=== PATIENT | female | born 2000 | race Two or more races ===

== ENCOUNTER 2018-10-11 10:16 | Emergency (ER) | payer OTHER ==
[~2018-10-11] VITALS: Ht 162.6 cm; Wt 64.1 kg
[~2018-10-11 10:16] MED LIST: PENI250T57 PO
[2018-10-11] MEDS ORDERED: MELA5TAB20 PO (10:23)
[2018-10-11] MEDS ORDERED: HYDRO50TAB PO (10:23)
[2018-10-11] MEDS ORDERED: IPRATROPIUM 0.5MG/ALBUTEROL 2.5MG INH SOL UD 3ML (DUONEB)(J7620) NEB PRN (11:15)
[2018-10-11 12:04] LABS: INFLUENZA A AMPLIFICATION NEGATIVE (NEGATIVE); INFLUENZA B AMPLIFICATION NEGATIVE (NEGATIVE)
[2018-10-11] MEDS ORDERED: AUGM875T28 PO (12:23)
[2018-10-11] MEDS ORDERED: PRED20TA PO (12:23)
[2018-10-11] MEDS ORDERED: MUCI600T37 PO (12:23)
[2018-10-11] MEDS ORDERED: PROAAER10 INH (12:23)
--- NOTE | 2018-10-11 12:24 | REP ---
Chest two views HISTORY: Cough Comparison: None The lungs are clear. The heart is normal in size. The pulmonary vasculature is normal in appearance. The bony structure is intact. IMPRESSION: No acute disease. Electronically Signed by Oleksandr Teixeira MD 10/11/2018 12:15 P
[2018-10-11 12:27] VITALS: BP 139/79
[2018-10-11] MEDS ORDERED: GI COCKTAIL 50ML BTL(HYOSCYAMINE/MAALOX/LIDOCAINE VISCOUS)(1:3:1) PO ONE (12:30)
[2018-10-11] MEDS ORDERED: AUGMENTIN 875 MG TAB PO ONE (12:30)
== END 2018-10-11 12:37 | disposition home or self-care (01) ==
LOC: M ED 10:16
DX: J20.9 Acute bronchitis, unspecified (principal); J01.90 Acute sinusitis, unspecified; F17.200 Nicotine dependence, unspecified, uncomplicated; Z79.899 Other long term (current) drug therapy

== ENCOUNTER 2018-11-18 08:01 | Emergency (ER) | payer OTHER ==
[~2018-11-18] VITALS: Ht 162.6 cm; Wt 64.5 kg
[~2018-11-18 08:01] MED LIST changes: +AUGM875T28 PO; +HYDRO50TAB PO; +MELA5TAB20 PO; +MUCI600T37 PO; +PRED20TA PO; +PROAAER10 INH
[2018-11-18 08:45] LABS: BASO % 0.3 % (0.0-1.0); EOS # 0.4 10^3/uL (0.0-0.50); EOS % 3.7 % (0.0-3.0); HEMOGLOBIN 13.4 g/dl (12.0-15.5); LYMPH # 2.8 10^3/uL (1.5-6.5); LYMPH % 23.3 % (24.0-44.0); MEAN CORPUSCULAR HEMOGLOBIN 30.3 pg (27.0-33.0); MEAN CORPUSCULAR HGB CONC 33.5 g/dl (32.0-36.5); MEAN CORPUSCULAR VOLUME 90.5 fl (80.0-96.0); MONO # 0.9 10^3/uL (0.0-0.8); MONO % 7.9 % (0.0-5.0); NEUTROPHILS # 7.7 10^3/uL (1.8-7.7); NEUTROPHILS % 64.5 % (36.0-66.0); PLATELET COUNT, AUTOMATED 298 10^3/uL (150-450); RED BLOOD COUNT 4.42 10^6/uL (4.00-5.40); WHITE BLOOD COUNT 11.9 10^3/uL (4.0-10.0)
[2018-11-18 09:06] LABS: HCG, SERUM QUALITATIVE NEGATIVE (NEGATIVE)
[2018-11-18 09:08] LABS: ALBUMIN 3.6 GM/DL (3.2-5.2); ALT/SGPT 18 U/L (12-78); BILIRUBIN,DIRECT < 0.1 MG/DL (0.0-0.2); BILIRUBIN,TOTAL 0.2 MG/DL (0.2-1.0); BLOOD UREA NITROGEN 13 MG/DL (7-18); CALCIUM LEVEL 8.9 MG/DL (8.5-10.1); CARBON DIOXIDE LEVEL 26 MEQ/L (21-32); CHLORIDE LEVEL 106 MEQ/L (98-107); CREATININE FOR GFR 0.83 MG/DL (0.55-1.30); GLUCOSE, FASTING 91 MG/DL (70-100); LIPASE 139 U/L (73-393); POTASSIUM SERUM 4.4 MEQ/L (3.5-5.1); SODIUM LEVEL 139 MEQ/L (136-145); TOTAL PROTEIN 7.1 GM/DL (6.4-8.2)
[2018-11-18] MEDS ORDERED: GASTROGRAFIN SOLUTION 30ML (Q9963) As Ordered ONE (10:09)
[2018-11-18] MEDS: GASTROGRAFIN SOLUTION 30ML (Q9963) PO SCH ×2 (10:18→10:50)
--- NOTE | 2018-11-18 10:51 | REP ---
REASON: Nonspecific abdominal pain. FINDINGS: Supine and upright views of the abdomen show the intestinal gas pattern to be nonspecific. Gas and stool is seen throughout the colon within the rectosigmoid region. The organ silhouettes insofar as delineated appear unremarkable. No abdominal calcific densities are seen within the abdomen or pelvis. The accompanying single frontal view of the chest shows no free subdiaphragmatic air, cardiomegaly, infiltrates or effusions. IMPRESSION: Nonspecific intestinal gas pattern. Electronically Signed by Sam Tinsley DO 11/18/2018 01:52 P
[2018-11-18] MEDS ORDERED: ISOVUE-370 76% 100ML VIAL (Q9967) As Ordered ONE (11:52)
[2018-11-18] MEDS ORDERED: NAPR-837 PO (12:31)
[2018-11-18 12:39] VITALS: BP 124/75
--- NOTE | 2018-11-18 12:44 | REP ---
REASON: Right lower quadrant pain. COMPARISON: None. CONTRAST: 100 mL Isovue 370. The lung bases are clear. The liver, gallbladder, spleen, pancreas, adrenal glands, and kidneys are within normal limits. The abdominal aorta and para-aortic regions are within normal limits. The bowel loops and the mesenteries are within normal limits. There is no free fluid or free air. There is no mass or adenopathy. CT PELVIS: In the right adnexa, there is a 2.1 cm sized wall irregular nearly anechoic structure most consistent with a decompressing right ovarian cyst. There is a trace amount of free fluid in the pelvis. There is no free air. The bowel loops are unremarkable. Bone window technique throughout the examination shows the osseous structures to be within normal limits. IMPRESSION: 1. Decompressing right ovarian cyst suspected as described above. Electronically Signed by Sam Tinsley DO 11/18/2018 02:33 P
== END 2018-11-18 12:41 | disposition home or self-care (01) ==
LOC: M ED 08:01
DX: N83.299 Other ovarian cyst, unspecified side (principal); Z79.899 Other long term (current) drug therapy
CPT/HCPCS: 74021; 74177; 80048; 80076; 81001; 83690; 84703; 85025; 99284; Q9967

== ENCOUNTER 2019-03-15 02:13 | Emergency (ER) | payer OTHER ==
[~2019-03-15] VITALS: Ht 162.6 cm; Wt 66.8 kg
[~2019-03-15 02:13] MED LIST changes: +HYDR1TAB33 PO; -HYDRO50TAB PO; +NAPR-837 PO
[2019-03-15] MEDS ORDERED: TRAZ-186 PO (02:24)
[2019-03-15] MEDS ORDERED: birth control PO (02:24)
[2019-03-15] MEDS ORDERED: KETOROLAC 30 MG/ML VIAL (J1885) IV ONE (05:15)
[2019-03-15] MEDS ORDERED: diphenhydrAMINE INJ 50MG/ML VIAL (J1200) IV ONE (05:15)
[2019-03-15] MEDS ORDERED: NS 1,000 ML IV ONE (05:15)
[2019-03-15] MEDS ORDERED: METOCLOPRAMIDE INJ 10MG/2ML VIAL (J2765) IV ONE (05:15)
[2019-03-15 06:15] VITALS: BP 114/64
== END 2019-03-15 06:16 | disposition home or self-care (01) ==
LOC: M ED 02:13
DX: G43.909 Migraine, unspecified, not intractable, without status migrainosus (principal); E28.2 Polycystic ovarian syndrome; F43.10 Post-traumatic stress disorder, unspecified
CPT/HCPCS: 96361; 96374; 96375; 99284; J1200; J1885; J2765

== ENCOUNTER 2019-04-17 20:21 | Emergency (ER) | payer OTHER ==
[~2019-04-17] VITALS: Ht 162.6 cm; Wt 65.9 kg
[~2019-04-17 20:21] MED LIST changes: +TRAZ-186 PO; +birth control PO
[2019-04-17] MEDS ORDERED: METF-839 PO (20:38)
[2019-04-17] MEDS ORDERED: GLYC1TAB18 PO (20:38)
[2019-04-17] MEDS ORDERED: LEXA1TAB PO (20:38)
[2019-04-17 22:47] LABS: HEMATOCRIT 35.3 % (36.0-47.0); HEMOGLOBIN 11.9 g/dl (12.0-15.5); MEAN CORPUSCULAR HEMOGLOBIN 30.3 pg (27.0-33.0); MEAN CORPUSCULAR HGB CONC 33.7 g/dl (32.0-36.5); MEAN CORPUSCULAR VOLUME 89.8 fl (80.0-96.0); PLATELET COUNT, AUTOMATED 346 10^3/uL (150-450); RED BLOOD COUNT 3.93 10^6/uL (4.00-5.40); WHITE BLOOD COUNT 11.3 10^3/uL (4.0-10.0)
[2019-04-17 23:21] LABS: ATYPICAL LYMPH 1 % (0-5); EOSINOPHILS 6 % (0-3); LYMPHOCYTES 43 % (16-44); MONOCYTES 5 % (0-5); NEUTROPHILS 45 % (28-66); PLATELET ESTIMATE NORMAL (NORMAL)
[2019-04-17 23:24] LABS: ALBUMIN 3.3 GM/DL (3.2-5.2); ALT/SGPT 19 U/L (12-78); BILIRUBIN,DIRECT < 0.1 MG/DL (0.0-0.2); BILIRUBIN,TOTAL 0.1 MG/DL (0.2-1.0); BLOOD UREA NITROGEN 16 MG/DL (7-18); CALCIUM LEVEL 8.5 MG/DL (8.5-10.1); CARBON DIOXIDE LEVEL 26 MEQ/L (21-32); CHLORIDE LEVEL 104 MEQ/L (98-107); CK-MB VALUE MASS < 1.0 NG/ML (<3.6); CPK CREATINE PHOSPHOKINASE 49 U/L (26-192); GLOMERULAR FILTRATION RATE > 60.0 (>60); GLUCOSE, FASTING 108 MG/DL (70-100); LIPASE 158 U/L (73-393); MB/CK RELATIVE INDEX 2.04 (< OR =4); POTASSIUM SERUM 3.7 MEQ/L (3.5-5.1); SODIUM LEVEL 139 MEQ/L (136-145); TROPONIN I < 0.02 NG/ML (< 0.10)
[2019-04-17] MEDS ORDERED: ALBUTEROL SULFATE 2.5 MG/0.5 ML INH NEB SOLN NEB ONE (23:45)
[2019-04-18] MEDS ORDERED: PROAAER10 INH (00:17)
[2019-04-18 00:45] VITALS: BP 125/88
--- NOTE | 2019-04-18 01:18 | REP ---
Clinical: Acute chest pain . Comparison: 11/18/2018, 10/11/2018 . Technique: PA and lateral. Findings: The mediastinum and cardiac silhouette are normal. The lung murray are clear and without acute consolidation, effusion, or pneumothorax. The skeletal structures are intact and normal. Impression: 1. No acute cardiopulmonary process. Electronically Signed by Jalen Araya MD 04/18/2019 01:10 A
--- NOTE | 2019-04-18 21:33 | ECGEPIP ---
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
== END 2019-04-18 00:46 | disposition home or self-care (01) ==
LOC: M ED 20:21
DX: R07.9 Chest pain, unspecified (principal); E11.9 Type 2 diabetes mellitus without complications; K21.9 Gastro-esophageal reflux disease without esophagitis; Z79.899 Other long term (current) drug therapy; Z79.84 Long term (current) use of oral hypoglycemic drugs; Z77.098 Contact with and (suspected) exposure to other hazardous, chiefly nonmedicinal, chemicals

== ENCOUNTER 2019-05-07 17:24 | Emergency (ER) | payer OTHER ==
[~2019-05-07] VITALS: Ht 160 cm; Wt 61.4 kg
[~2019-05-07 17:24] MED LIST changes: +GLYC1TAB18 PO; +LEXA1TAB PO; +METF-839 PO
[2019-05-07 18:26] LABS: HCG, SERUM QUALITATIVE NEGATIVE (NEGATIVE)
[2019-05-07 18:38] LABS: AMPHETAMINES LEVEL URINE NEGATIVE (NEGATIVE); BARBITURATES URINE NEGATIVE (NEGATIVE); BENZODIAZEPINES URINE NEGATIVE (NEGATIVE); CANNABINOIDS URINE NEGATIVE (NEGATIVE); COCAINE METABOLITE URINE NEGATIVE (NEGATIVE); METHADONE URINE NEGATIVE (NEGATIVE); OPIATES URINE NEGATIVE (NEGATIVE); PHENCYCLIDINE URINE NEGATIVE (NEGATIVE)
[2019-05-07 18:40] LABS: ACETAMINOPHEN LEVEL < 2.0 UG/ML (10.0-30.0); ALBUMIN 3.7 GM/DL (3.2-5.2); ALT/SGPT 27 U/L (12-78); BILIRUBIN,DIRECT < 0.1 MG/DL (0.0-0.2); BILIRUBIN,TOTAL 0.2 MG/DL (0.2-1.0); BLOOD UREA NITROGEN 10 MG/DL (7-18); CALCIUM LEVEL 9.1 MG/DL (8.5-10.1); CARBON DIOXIDE LEVEL 26 MEQ/L (21-32); CHLORIDE LEVEL 104 MEQ/L (98-107); CREATININE FOR GFR 0.87 MG/DL (0.55-1.30); ETHYL ALCOHOL (ETHANOL) < 0.003 % (0.000-0.010); GLOMERULAR FILTRATION RATE > 60.0 (>60); GLUCOSE, FASTING 83 MG/DL (70-100); SALICYLATE LEVEL < 1.7 MG/DL (5.0-30.0); SODIUM LEVEL 138 MEQ/L (136-145); TOTAL PROTEIN 8.2 GM/DL (6.4-8.2)
[2019-05-07 19:10] LABS: HEMATOCRIT 41.3 % (36.0-47.0); HEMOGLOBIN 13.4 g/dl (12.0-15.5); MEAN CORPUSCULAR HEMOGLOBIN 29.5 pg (27.0-33.0); MEAN CORPUSCULAR HGB CONC 32.4 g/dl (32.0-36.5); PLATELET COUNT, AUTOMATED 389 10^3/uL (150-450); RED BLOOD COUNT 4.54 10^6/uL (4.00-5.40); WHITE BLOOD COUNT 9.2 10^3/uL (4.0-10.0)
[2019-05-08 03:44] VITALS: BP 126/74
--- NOTE | 2019-05-08 07:09 | ECGEPIP ---
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
== END 2019-05-08 03:47 ==
LOC: M ED 17:24
DX: F32.9 Major depressive disorder, single episode, unspecified (principal); R45.851 Suicidal ideations; F43.10 Post-traumatic stress disorder, unspecified; F41.9 Anxiety disorder, unspecified; R73.03 Prediabetes; F17.200 Nicotine dependence, unspecified, uncomplicated; Z79.84 Long term (current) use of oral hypoglycemic drugs; Z79.899 Other long term (current) drug therapy
CPT/HCPCS: 36415; 80048; 80076; 80307; 84443; 84703; 85027; 93005; 99284; G0480

== ENCOUNTER 2019-05-29 06:15 | Emergency (ER) | payer OTHER ==
[~2019-05-29] VITALS: Ht 162.6 cm; Wt 66.8 kg
[2019-05-29] MEDS ORDERED: PROZ20CA11 PO (06:22)
[2019-05-29] MEDS ORDERED: ALL10TAB2 PO (07:14)
[2019-05-29] MEDS ORDERED: BENZ200C70 PO (07:14)
[2019-05-29 08:06] LABS: INFLUENZA A AMPLIFICATION NEGATIVE (NEGATIVE); INFLUENZA B AMPLIFICATION NEGATIVE (NEGATIVE)
[2019-05-29] MEDS ORDERED: FLON1SPR NARES (08:09)
[2019-05-29 08:15] VITALS: BP 128/68
== END 2019-05-29 08:20 | disposition home or self-care (01) ==
LOC: M ED 06:15
DX: J20.9 Acute bronchitis, unspecified (principal); F33.9 Major depressive disorder, recurrent, unspecified; F41.9 Anxiety disorder, unspecified; F43.10 Post-traumatic stress disorder, unspecified; E28.2 Polycystic ovarian syndrome; Z79.899 Other long term (current) drug therapy

== ENCOUNTER → 2019-09-03 | Outpatient (CLI) | payer OTHER ==
[~2019-09-03] MED LIST changes: +ALL10TAB2 PO; +BENZ200C70 PO; +FLON1SPR NARES; +METHACHOLINE KIT (J7674) INH ONE; +PROZ20CA11 PO
--- NOTE | 2019-09-03 11:26 | PFTRPT ---
Site: [facility], [address] [place], [address] ID: [id number] Name: MASOUD MOSQUERA Visit Date: 09/03/2019 Second ID: [id number] Referring Doctor: Kishore JACOBO, Veronica Morin Reviewing Doctor: Cliff Lemon MD Domestic Cleaner: Barbie MALDONADO, TAMMIE Age: 19 : 2000 Sex: Female Race: Black Height: 64.00 Inches Weight: 144.00 Lbs BSA: 1.70 Order IDs: [id number] Requested Test(s): <RESP-PFT.METH CHAL> Diagnosis: R06.00 of albuterol for postbronchodilator. Review Status: Not Reviewed Pre-Bronch Post-Bronch Pred Actual %Pred Actual %Chng SPIROMETRY FVC (L) 3.28 3.72 113 3.77 1 FEV1 (L) 2.89 3.10 107 3.18 2 FEV1/FVC (%) 87 83 95 84 1 FEF 25% (L/sec) 5.90 5.90 100 5.71 -3 FEF 50% (L/sec) 4.74 3.50 73 4.17 19 FEF 75% (L/sec) 2.09 1.56 74 1.66 6 FEF 25-75% (L/sec) 3.53 3.09 87 3.38 9 FEF Max (L/sec) 6.93 6.04 87 5.75 -4 FIVC (L) 2.61 3.33 27 FIF 50% (L/sec) 4.17 3.44 82 2.81 -18 FIF Max (L/sec) 3.46 3.21 -7 Expiratory Time (sec) 6.06 5.01 -17 Back Extrap Vol (L) 0.11 0.15 29 Time To FEFmax (sec) 0.111 0.139 24
== END ==
LOC: M CARPUL 10:26
PROVIDERS: ATTEND Internal Medicine Pulmonary Disease
DX: R06.00 Dyspnea, unspecified (principal)
CPT/HCPCS: 94070; J7674

== ENCOUNTER 2019-10-22 07:08 | Emergency (ER) | payer OTHER ==
[~2019-10-22] VITALS: Ht 162.6 cm; Wt 65.5 kg
[~2019-10-22 07:08] MED LIST changes: -METHACHOLINE KIT (J7674) INH ONE
[2019-10-22] MEDS ORDERED: EMOQTAB (07:14)
[2019-10-22] MEDS ORDERED: NS 1,000 ML IV ONE (07:45)
[2019-10-22] MEDS ORDERED: ONDANSETRON 4MG/2ML VIAL (J2405) IV ONE (07:45)
[2019-10-22 08:09] LABS: BASO % 0.2 % (0.0-1.0); EOS # 0.2 10^3/uL (0.0-0.5); EOS % 1.6 % (0.0-3.0); HEMATOCRIT 37.1 % (36.0-47.0); HEMOGLOBIN 12.5 g/dl (12.0-15.5); LYMPH # 1.9 10^3/uL (1.5-5.0); LYMPH % 19.8 % (24.0-44.0); MEAN CORPUSCULAR HEMOGLOBIN 30.5 pg (27.0-33.0); MEAN CORPUSCULAR HGB CONC 33.7 g/dl (32.0-36.5); MEAN CORPUSCULAR VOLUME 90.5 fl (80.0-96.0); MONO # 0.6 10^3/uL (0.0-0.8); MONO % 5.8 % (0.0-5.0); NEUTROPHILS # 7.1 10^3/uL (1.5-8.5); NEUTROPHILS % 72.3 % (36.0-66.0); PLATELET COUNT, AUTOMATED 289 10^3/uL (150-450); WHITE BLOOD COUNT 9.8 10^3/uL (4.0-10.0)
[2019-10-22 08:28] LABS: INFLUENZA A AMPLIFICATION NEGATIVE (NEGATIVE); INFLUENZA B AMPLIFICATION NEGATIVE (NEGATIVE)
[2019-10-22] MEDS ORDERED: ISOVUE-370 76% 100ML VIAL (Q9967) As Ordered ONE (08:28)
[2019-10-22 08:29] LABS: ALBUMIN 3.3 GM/DL (3.2-5.2); ALT/SGPT 17 U/L (12-78); BILIRUBIN,DIRECT < 0.1 MG/DL (0.0-0.2); BILIRUBIN,TOTAL 0.2 MG/DL (0.2-1.0); LIPASE 99 U/L (73-393); TOTAL PROTEIN 7.6 GM/DL (6.4-8.2)
--- NOTE | 2019-10-22 09:04 | REP ---
Clinical: Abdominal pain and rectal bleeding. Technique: Axial contrast enhanced images from the lung bases to the pubic symphysis using 100 ml Isovue 370 intravenous contrast material with coronal and sagittal re-formations. Findings: Lung bases are clear. Visualized heart and pericardium normal. Liver, spleen, pancreas, gallbladder, bilateral adrenal glands and kidneys are normal. The enteric system is without obstruction or obvious acute inflammatory process. Pelvis demonstrates normal bladder and age-appropriate uterus/adnexa. No ascites. No free air. No obvious adenopathy. Abdominal aorta and vasculature normal. Skeletal structures without acute osseous abnormality. Impression: No acute abdominopelvic pathology appreciated. Electronically Signed by Jalen Araay MD 10/22/2019 08:55 A
[2019-10-22] MEDS ORDERED: ONDA4TAB6 PO (09:33)
[2019-10-22 09:57] VITALS: BP 128/78
== END 2019-10-22 10:00 | disposition home or self-care (01) ==
LOC: M ED 07:08
DX: R10.9 Unspecified abdominal pain (principal); R11.2 Nausea with vomiting, unspecified; R19.7 Diarrhea, unspecified; E28.2 Polycystic ovarian syndrome; F43.10 Post-traumatic stress disorder, unspecified; Z79.899 Other long term (current) drug therapy; Z79.3 Long term (current) use of hormonal contraceptives; F17.210 Nicotine dependence, cigarettes, uncomplicated
CPT/HCPCS: 74177; 80047; 80076; 81001; 83690; 84702; 85025; 87502; 96361; 96374; 99284; J2405; Q9967

== ENCOUNTER 2019-11-03 04:35 | Emergency (ER) | payer OTHER ==
[~2019-11-03] VITALS: Ht 162.6 cm; Wt 61.8 kg
[~2019-11-03 04:35] MED LIST changes: +EMOQTAB; +ONDA4TAB6 PO
[2019-11-03 05:30] LABS: HEMATOCRIT 38.2 % (36.0-47.0); HEMOGLOBIN 12.5 g/dl (12.0-15.5); MEAN CORPUSCULAR HEMOGLOBIN 29.7 pg (27.0-33.0); MEAN CORPUSCULAR HGB CONC 32.7 g/dl (32.0-36.5); MEAN CORPUSCULAR VOLUME 90.7 fl (80.0-96.0); PLATELET COUNT, AUTOMATED 348 10^3/uL (150-450); RED BLOOD COUNT 4.21 10^6/uL (4.00-5.40); WHITE BLOOD COUNT 6.5 10^3/uL (4.0-10.0)
[2019-11-03 05:49] LABS: AMPHETAMINES LEVEL URINE NEGATIVE (NEGATIVE); BARBITURATES URINE NEGATIVE (NEGATIVE); BENZODIAZEPINES URINE NEGATIVE (NEGATIVE); CANNABINOIDS URINE NEGATIVE (NEGATIVE); COCAINE METABOLITE URINE NEGATIVE (NEGATIVE); METHADONE URINE NEGATIVE (NEGATIVE); OPIATES URINE NEGATIVE (NEGATIVE); PHENCYCLIDINE URINE NEGATIVE (NEGATIVE)
[2019-11-03 06:01] LABS: ALBUMIN 3.6 GM/DL (3.2-5.2); ALT/SGPT 19 U/L (12-78); BILIRUBIN,DIRECT < 0.1 MG/DL (0.0-0.2); BILIRUBIN,TOTAL 0.2 MG/DL (0.2-1.0); BLOOD UREA NITROGEN 9 MG/DL (7-18); CARBON DIOXIDE LEVEL 27 MEQ/L (21-32); CHLORIDE LEVEL 106 MEQ/L (98-107); CREATININE FOR GFR 0.85 MG/DL (0.55-1.30); ETHYL ALCOHOL (ETHANOL) 0.135 % (0.000-0.010); GLOMERULAR FILTRATION RATE > 60.0 (>60); GLUCOSE, FASTING 92 MG/DL (70-100); POTASSIUM SERUM 4.5 MEQ/L (3.5-5.1); SALICYLATE LEVEL 2.9 MG/DL (5.0-30.0); SODIUM LEVEL 137 MEQ/L (136-145); TOTAL PROTEIN 7.9 GM/DL (6.4-8.2)
[2019-11-03 06:02] LABS: ACETAMINOPHEN LEVEL < 2.0 UG/ML (10.0-30.0)
[2019-11-03 11:45] VITALS: BP 138/83
== END 2019-11-03 11:47 | disposition home or self-care (01) ==
LOC: M ED 04:35
DX: F10.129 Alcohol abuse with intoxication, unspecified (principal); Y90.0 Blood alcohol level of less than 20 mg/100 ml; F33.9 Major depressive disorder, recurrent, unspecified; Z91.5 Personal history of self-harm; Z79.899 Other long term (current) drug therapy; Z79.3 Long term (current) use of hormonal contraceptives; F17.210 Nicotine dependence, cigarettes, uncomplicated
CPT/HCPCS: 36415; 80048; 80076; 80307; 84443; 85027; 99284; G0480

== ENCOUNTER → 2019-12-09 | Outpatient (CLI) | payer OTHER ==
[~2019-12-09] MED LIST changes: +QUET1TAB7 PO; +ROBA750T4 PO
--- NOTE | 2019-12-12 12:53 | SLEEPCENT ---
DATE OF STUDY: 12/09/2019 ORDERED BY: Jalen Bush Nocturnal polysomnography was performed for evaluation of sleep physiology in this patient with a history of excessive somnolence and nonrestorative sleep. 6 hours and 41 minutes of data were reviewed. There were 367 minutes of sleep identified. Sleep latency was mildly short at 7 minutes. Rapid eye movement (REM) latency was short at 43 minutes. Sleep architecture was good with 4 REM cycles noted. Overall sleep efficiency was 91.9%. The patient's electrocardiogram showed a sinus rhythm with an average heart rate of 78 beats per minute. Rate ranged 60-90. Electroencephalogram (EEG) showed some artifactual changes from the occipital leads. Minor alpha intrusion was suspected. There were no focal events and normal waveforms for awake and sleep. There were no respiratory events identified of 10 seconds in duration or greater. Snoring was noted. There was some activity in the limb leads and only 1 train of 30 events. Limb movement arousal index was borderline at 7.7. Oxygen saturations remained 90% plus throughout the study. IMPRESSION: Nocturnal polysomnography with snoring.
== END ==
LOC: M SLEEP 20:00
PROVIDERS: ATTEND Physician Assistant
DX: R40.0 Somnolence (principal)

== ENCOUNTER 2019-12-12 14:32 | Emergency (ER) | payer OTHER ==
[~2019-12-12] VITALS: Ht 162.6 cm; Wt 95.3 kg
[~2019-12-12 14:32] MED LIST changes: -QUET1TAB7 PO; -ROBA750T4 PO
[2019-12-12] MEDS ORDERED: QUET1TAB7 PO (14:57)
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
[2019-12-12] MEDS ORDERED: METHOCARBAMOL 1,000 MG/10 ML VIAL (J2800) IV ONE (17:15)
[2019-12-12 17:55] LABS: BASO % 0.3 % (0.0-1.0); EOS # 0.1 10^3/uL (0.0-0.5); EOS % 0.7 % (0.0-3.0); HEMATOCRIT 38.6 % (36.0-47.0); HEMOGLOBIN 13.2 g/dl (12.0-15.5); LYMPH # 3.3 10^3/uL (1.5-5.0); MEAN CORPUSCULAR HEMOGLOBIN 30.8 pg (27.0-33.0); MEAN CORPUSCULAR HGB CONC 34.2 g/dl (32.0-36.5); MEAN CORPUSCULAR VOLUME 90.2 fl (80.0-96.0); MONO # 0.8 10^3/uL (0.0-0.8); MONO % 6.6 % (0.0-5.0); NEUTROPHILS # 7.2 10^3/uL (1.5-8.5); NEUTROPHILS % 63.1 % (36.0-66.0); PLATELET COUNT, AUTOMATED 338 10^3/uL (150-450); RED BLOOD COUNT 4.28 10^6/uL (4.00-5.40); WHITE BLOOD COUNT 11.3 10^3/uL (4.0-10.0)
[2019-12-12 18:15] LABS: BLOOD UREA NITROGEN 9 MG/DL (7-18); CALCIUM LEVEL 9.2 MG/DL (8.5-10.1); CARBON DIOXIDE LEVEL 24 MEQ/L (21-32); CHLORIDE LEVEL 101 MEQ/L (98-107); CREATININE FOR GFR 0.76 MG/DL (0.55-1.30); GLOMERULAR FILTRATION RATE > 60.0 (>60); GLUCOSE, FASTING 81 MG/DL (70-100); POTASSIUM SERUM 3.8 MEQ/L (3.5-5.1); SODIUM LEVEL 135 MEQ/L (136-145)
[2019-12-12] MEDS ORDERED: ISOVUE-370 76% 100ML VIAL As Ordered ONE (18:18)
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
[2019-12-12] MEDS ORDERED: NAPR-837 PO (19:09)
[2019-12-12] MEDS ORDERED: ROBA750T4 PO (19:09)
[2019-12-12 19:14] VITALS: BP 138/83
== END 2019-12-12 19:18 | disposition home or self-care (01) ==
LOC: M ED 14:32
DX: S16.1XXA Strain of muscle, fascia and tendon at neck level, initial encounter (principal); V49.49XA Driver injured in collision with other motor vehicles in traffic accident, initial encounter; Y92.410 Unspecified street and highway as the place of occurrence of the external cause; R10.9 Unspecified abdominal pain; J45.909 Unspecified asthma, uncomplicated; E28.2 Polycystic ovarian syndrome; N63.12 Unspecified lump in the right breast, upper inner quadrant; Z79.899 Other long term (current) drug therapy; Z80.3 Family history of malignant neoplasm of breast
CPT/HCPCS: 70450; 72125; 74177; 76642; 77066; 80048; 84702; 85025; 96374; 99284; G0279; J2800; Q9967

== ENCOUNTER → 2019-12-12 | Outpatient (CLI) | payer OTHER ==
--- NOTE | 2019-12-12 14:44 | REP ---
FOCUSED RIGHT BREAST SONOGRAPHY AND DIGITAL DIAGNOSTIC UNILATERAL RIGHT BREAST MAMMOGRAPHY WITH CAD AND 3D TOMOGRAPHY: SONOGRAPHIC FINDINGS: Scanning is performed through the area of the palpable lump in the right breast between 5-o'clock and 6-o'clock position. Heterogeneous fibroglandular background echotexture is seen. No cyst or mass is observed sonographically. No acoustic shadowing or architectural distortion is seen. MAMMOGRAPHIC FINDINGS: A skin marker is affixed to the skin at the site of the palpable lump. Breast parenchyma is heterogeneously dense. The Volpara volumetric breast density category is D. No dominant density is seen at the site of the palpable lump or elsewhere in the right breast mammographically. No worrisome skin change, architectural distortion, or microcalcification is seen. IMPRESSION: BIRADS category 1 negative sonographic and mammographic findings. Clinical followup is advised. This patient's estimated Tyrer-Cuzick lifetime risk assessment for breast cancer is 23.1 %. Breast cancer screening, with MRI and/or mammography can be considered in this patient's mid 30s; which is a decade before the maternal grandmother's breast cancer was diagnosed. This mammogram was interpreted with the aid of an FDA-approved computer-aided detection system. The patient states she had a clinical breast exam in November 2019 The patient letter being requested is M2 dense.
== END ==
LOC: M WHC 10:52
PROVIDERS: ATTEND Nurse Practitioner Women's Health
DX: N63.12 Unspecified lump in the right breast, upper inner quadrant (principal); Z80.3 Family history of malignant neoplasm of breast